=== PATIENT | female | born 1935 | race Caucasian/White ===

== ENCOUNTER → 2018-08-07 | Outpatient (REF) | payer MEDICARE, OTHER ==
[~2018-08-07] MED LIST: 1/2 NS; AMLODIPINE BES2.5 MG PO; ANUCORT-HC25 MG RE; CELEBREX100 M1 PO; CELEBREX100 MG PO; CIPROFLOXACIN250 MG OR; CIPROFLOXACIN500 M1 PO; CIPROFLOXACN500 MG PO; ENOXAPARIN40 MG/0.1 SC; FLEXERIL5 M1 PO; LORTAB 5/3255 MG PO; LOTREL 2.5/101 CAP PO; LOTREL1 CA6 PO; LOVENOX40 MG/0.4 SC; TRAMADOL HCL50 MG PO; TRAZODONE50 MG PO; ZOCOR5 MG PO; ZOLOFT25 MG PO; ZOLOFT50 MG PO; [UNRECOGNIZED DRUG - OTHER]; [UNRECOGNIZED DRUG - REMARK]
[2018-08-07 09:23] LABS: HEMATOCRIT 44.2 % (37.0-47.0); HEMOGLOBIN 14.2 g/dl (12.0-16.0); IMMATURE GRANULOCYTES 0.3 % (0.0-5.0); MEAN CELL VOLUME 94.8 fL CALC (80.0-100.0); MEAN CORPUSCULAR HGB 30.5 pG CALC (26.0-32.0); MEAN CORPUSCULAR HGB CONC 32.1 g/L CALC (32.0-36.0); NEUT# 3.53 thou/uL (2.00-7.15); RED BLOOD COUNT 4.66 mill/uL (4.20-5.60); RED CELL DISTRI WIDTH 13.8 % (11.5-15.5)
[2018-08-07 09:27] LABS: ALBUMIN 4.2 g/dL (3.2-5.0); ALKALINE PHOSPHATASE 83 u/l (38-126); ANION GAP 13 (6-22 (CALC)); BILIRUBIN, TOTAL 0.5 mg/dL (0.0-1.4); BUN 11 mg/dL (8-23); BUN/CREATININE RATIO 18 (12-20 (CALC)); CALCULATED LDLCHOLESTEROL 87 mg/dL (62-129 (CALC)); CARBON DIOXIDE 29 mmol/l (22-30); CHLORIDE 108 mmol/l (95-108); CHOLESTEROL HDL RATIO 3.3 (<4.4 (CALC)); CREATININE 0.6 mg/dL (0.5-1.0); GFR > 60 ML/MIN (>=60 (CALC)); GFR FOR AFR.AMER. > 60 ML/MIN (>=60 (CALC)); HDL CHOLESTEROL 51 mg/dL (>=40); POTASSIUM 5.1 mmol/l (3.5-5.1); SGOT/AST 22 u/l (9-36); SODIUM 145 mmol/l (137-146); TOTAL CHOLESTEROL 169 mg/dl (0-199); TOTAL PROTEIN 6.9 g/dL (6.3-8.2); TOTAL TRIGLYCERIDES 151 mg/dl (30-149); VLDL CHOLESTROL 30 mg/dl (0-48 (CALC))
[2018-08-07 09:55] LABS: TSH, 3RD GENERATION 2.27 uIU/mL (0.47 - 4.68)
== END | disposition home or self-care (01) ==
LOC: LAB 08:26
PROVIDERS: ATTEND Nurse Practitioner Family
DX: G47.00 Insomnia, unspecified (principal); I10 Essential (primary) hypertension; M15.9 Polyosteoarthritis, unspecified

== ENCOUNTER → 2018-08-27 | Outpatient (REF) | payer MEDICARE, OTHER | END | disposition home or self-care (01) | LOC: CT 14:32 | PROVIDERS: ATTEND Nurse Practitioner | DX: R05 Cough (principal) ==

== ENCOUNTER 2023-06-18 15:57 | Emergency (ER) | payer MEDICARE, OTHER ==
[~2023-06-18] VITALS: Ht 162.6 cm; Wt 50.0 kg
[2023-06-18] MEDS ORDERED: FLOXIN OTIC0.3 % AS ×2 (18:39→18:59)
[2023-06-18 19:01] VITALS: BP 151/81
== END 2023-06-18 19:03 | disposition home or self-care (01) ==
LOC: ED 15:57
PROC: 09C4XZZ Extirpation of Matter from Left External Auditory Canal, External Approach (ICD-10-PCS; principal; 2023-06-18)
DX: T16.2XXA Foreign body in left ear, initial encounter (principal); I10 Essential (primary) hypertension; W44.8XXA Other foreign body entering into or through a natural orifice, initial encounter

== ENCOUNTER 2024-06-01 12:57 | Emergency (ER) | payer MEDICARE, OTHER ==
[~2024-06-01] VITALS: Ht 162.6 cm; Wt 53.9 kg
[~2024-06-01 12:57] MED LIST changes: +CEFDINIR300 MG PO; +FLOXIN OTIC0.3 % AS; +KEFLEX500 MG PO; +MIRALAX17 GM PO; +NAPROXEN500 MG PO; +ZYRTEC10 MG PO
[2024-06-01] MEDS ORDERED: ORPHENADRINE CITRATE 30 MG/ML AMP IM ONE (14:15)
[2024-06-01] MEDS ORDERED: KETOROLAC TROMETHAMINE 30 MG/ML SDV IM ONE (14:15)
[2024-06-01 15:51] LABS: URINE BILIRUBIN - DIPSTICK Negative (NEGATIVE); URINE BLOOD DIPSTICK Negative (NEGATIVE); URINE COLOR Yellow; URINE GLUCOSE - DIPSTICK Negative (NEGATIVE); URINE KETONE Negative (NEGATIVE); URINE LEUK ESTERASE Trace (NEGATIVE); URINE NITRITE - DIPSTICK Positive (Negative); URINE PH 5.5 (4.5-8.0); URINE PROTEIN - DIPSTICK Negative (NEG-TRACE); URINE SPECIFIC GRAVITY <=1.005; URINE UROBILINOGEN - DIPSTICK 0.2 E.U./dL (0.2)
[2024-06-01 15:56] LABS: URINE BACTERIA MANY hpf
[2024-06-01 15:57] LABS: URINE SQUAMOUS EPITHELIAL CELL FEW EPI/hpf (0-FEW)
[2024-06-01] MEDS ORDERED: SULFAMETHOXAZOLE W/TRIMETHOPRI 1 COMBO TAB PO ONE (17:20)
[2024-06-01] MEDS ORDERED: traMADol HCL 50 MG/TAB PO ONE (17:20)
[2024-06-01] MEDS ORDERED: BACTRIM DS1 TAB PO (17:45)
[2024-06-01] MEDS ORDERED: METHOCARBAMOL500 MG PO (18:17)
[2024-06-01] MEDS ORDERED: PREDNISONE10 MG PO (18:17)
[2024-06-01] MEDS ORDERED: NAPROXEN500 MG PO (18:17)
[2024-06-01] MEDS ORDERED: predniSONE 20 MG/TAB PO ONE (18:30)
[2024-06-01 18:41] VITALS: BP 168/81
== END 2024-06-01 18:41 | disposition home or self-care (01) ==
LOC: ED 12:57
PROVIDERS: Nurse Practitioner
DX: M25.551 Pain in right hip (principal); N39.0 Urinary tract infection, site not specified; I10 Essential (primary) hypertension; E78.00 Pure hypercholesterolemia, unspecified
CPT/HCPCS: J2360